=== PATIENT | male | born 1995 | race Two or more races ===

== ENCOUNTER 2017-06-04 02:54 | Emergency (ER) | payer BC, OTHER ==
[2017-06-04] MEDS ORDERED: PENICILLIN V POTASSIUM 500 MG TABLET PO ONE (03:28)
[2017-06-04] MEDS ORDERED: LIDOCAINE 2% VISCOUS SOLN 20 ML UDCUP PO ONE (03:28)
--- NOTE | 2017-06-04 03:33 | ER Document Report ---
HPI - HPI Pain Level: 5 Notes: Patient is a 21-year-old male no significant past medical history who presents to the ED complaining of dental pain #15 2-3 hours. Patient has not noticed any other obvious abscess or purulent discharge. He has not noticed any swelling. Patient states that he is still eating and drinking without difficulties. Patient has not schedule an appointment with a dentist. Denies any drug allergies, smoking, IV drug use. No other concerns or complaints at this time. Denies any headache, fever, head injury, neck pain, changes in vision/speech/mentation/hearing, URI, sore throat, chest pain, palpitations, syncope, cough, shortness of breath, wheeze, dyspnea, abdominal pain, nausea/ vomiting/diarrhea, urinary retention, dysuria, hematuria, or rash. - ROS Systems Reviewed and Negative: Yes All other systems reviewed and negative Past Medical History - Social History Smoking Status: Never Smoker Family History: Reviewed & Not Pertinent Vertical Provider Document - CONSTITUTIONAL Agree With Documented VS: Yes Notes: PHYSICAL EXAMINATION: GENERAL: Well-appearing, well-nourished and in no acute distress. HEAD: Atraumatic, normocephalic. EYES: Pupils equal round and reactive to light, extraocular movements intact, sclera anicteric, conjunctiva are normal. ENT: EAC clear b/l. TM's intact b/l without erythema, fluid, or perforation. Nares patent and without discharge. oropharynx clear without exudates. No tonsilar hypertrophy or erythema. Moist mucous membranes. No sinus tenderness. Uvula midline. No palatine shift. No tongue protrusion. No respiratory compromise. Mouth: Poor dentition. + mild decay and mild gingivitis. No obvious abscess or discharge noted. No facial swelling. + tenderness to tooth #15. NECK: Normal range of motion, supple without lymphadenopathy. No rigidity/ meningismus. LUNGS: Breath sounds clear to auscultation bilaterally and equal. No wheezes rales or rhonchi. HEART: Regular rate and rhythm without murmurs, rubs, gallops. NEUROLOGICAL: Cranial nerves grossly intact. Normal speech, normal gait. Normal sensory, motor exams PSYCH: Normal mood, normal affect. SKIN: Warm, Dry, normal turgor, no rashes or lesions noted. - INFECTION CONTROL TRAVEL OUTSIDE OF THE [place] IN LAST 30 DAYS: No Course - Re-evaluation Re-evalutation: 06/04/17 03:30 Patient is an afebrile, well-hydrated, 21-year-old male who presents to the ED with dental pain and #15, suspect nerve root etiology versus infection. Vitals are acceptable. PE is otherwise unremarkable. No labs or imaging warranted at this time based on H&P. No incision and drainage warranted at this time. Patient will be given viscous lidocaine as well as first dose of penicillin. I will send him home with a prescription for penicillin. Low suspicion for any meningitis, sepsis, peritonsillar/pharyngeal abscess, respiratory compromise, Jorje's, temporal arteritis, or other emergent systemic condition at this time. Patient is aware this condition can change from initial presentation and he needs to monitor symptoms closely. Conservative measures otherwise for symptoms. Call to schedule an appointment with a dentist for further evaluation and management. Recheck with your PCM this week as well. Return to the ED with any worsening/concerning symptoms otherwise as reviewed in discharge. Patient is in agreement. - Vital Signs Vital signs: Temp Pulse Resp BP Pulse Ox 98.8 F 78 18 150/100 H 98 06/04/17 02:58 06/04/17 02:58 06/04/17 02:58 06/04/17 02:58 06/04/17 02:58 Discharge - Discharge Clinical Impression: Pain, dental Condition: Stable Disposition: HOME, SELF-CARE Instructions: Penicillin V K ([facility]), Toothache ([facility]) Additional Instructions: [place] and floss twice daily Maintain fluid intake Take antibiotics as directed Mouthwash, salt water gargles, peroxide rinse as needed Tylenol/ibuprofen as needed Recheck with PCM this week Call today/tomorrow and schedule an appointment with your dentist for further evaluation Return to the ED with any worsening symptoms and/or development of fever, headache, facial swelling, swelling of lips/tongue/throat, trouble swallowing, drooling, hoarseness, neck pain/stiffness, chest pain, palpitations, syncope, shortness of breath, trouble breathing, abdominal pain, n/v/d, numbness/tingling , or other worsening symptoms that are concerning to you. Prescriptions: Penicillin V Potassium [Penicillin Vk 250 mg Tablet] 500 mg PO BID #40 tablet Forms: Elevated Blood Pressure Referrals: [facility] [Provider Group] - Follow up in 1 week
[2017-06-04 03:44] VITALS: BP 148/96
== END 2017-06-04 03:42 | disposition home or self-care (01) ==
LOC: ER 02:54
DX: K08.89 Other specified disorders of teeth and supporting structures (principal); K02.9 Dental caries, unspecified; K05.10 Chronic gingivitis, plaque induced
CPT/HCPCS: 99282; J3490